=== PATIENT | male | born 1955 | race Caucasian/White ===

== ENCOUNTER → 2018-04-13 | Outpatient (CLI) | payer SELFPAY ==
[2018-04-13 11:10] LABS: Blood Urea Nitrogen 24 mg/dL (9-20)
== END | disposition home or self-care (01) ==
LOC: LABWHC1 10:34
PROVIDERS: ATTEND Physical Medicine & Rehabilitation
DX: M47.27 Other spondylosis with radiculopathy, lumbosacral region (principal); Z98.890 Other specified postprocedural states
CPT/HCPCS: 36415; 82565; 84520

== ENCOUNTER 2021-10-23 20:17 | Emergency (ER) | payer BC ==
[2021-10-23 20:24] VITALS: TEMP 99.9
[2021-10-23 21:31] LABS: Basophils % (A) 0 %; Eosinophils % (A) 0 %; HCT 46.8 % (39.0-53.0); HGB 16.6 gm/dL (13.0-17.5); Lymphocytes # (A) 0.7 k/uL (1.0-4.8); Lymphocytes % (A) 4 %; MCH 34.2 pg (25.0-35.0); MCHC 35.4 g/dL (31.0-37.0); MCV 96.7 fL (80.0-100.0); Mean Platelet Volume 7.2; Monocytes # (A) 0.7 k/uL (0-1.0); Monocytes % (A) 4 %; Neutrophils # (A) 15.1 k/uL (1.3-7.7); Neutrophils % (A) 90 %; Platelet Count 267 k/uL (150-450); RBC 4.84 m/uL (4.30-5.90); RDW 12.6 % (11.5-15.5); WBC 16.7 k/uL (3.8-10.6)
[2021-10-23 21:44] LABS: ALT 15 U/L (4-49); AST 30 U/L (17-59); African American GFR (CKD) >90 (>60 ml/min/1.73 sqM); Albumin 4.4 g/dL (3.5-5.0); Alkaline Phosphatase 78 U/L (38-126); Anion Gap 12 mmol/L; Blood Urea Nitrogen 26 mg/dL (9-20); Calcium 9.7 mg/dL (8.4-10.2); Carbon Dioxide 23 mmol/L (22-30); Chloride 99 mmol/L (98-107); Glucose 111 mg/dL (74-99); Non-African American GFR(CKD) >90 (>60 ml/min/1.73 sqM); Potassium 4.3 mmol/L (3.5-5.1); Sodium 134 mmol/L (137-145); Total Protein 7.5 g/dL (6.3-8.2)
[2021-10-23 21:55] LABS: Appearance,Urine Clear (Clear); Bilirubin,Urine Negative (Negative); Blood,Urine Negative (Negative); Color,Urine Yellow; Glucose,Urine (UA) Negative (Negative); Ketones,Urine 1+ (Negative); Leukocyte Esterase,Urine Negative (Negative); Nitrite,Urine Negative (Negative); Protein,Urine Trace (Negative); Specific Gravity,Urine 1.025 (1.001-1.035); Urobilinogen,Urine <2.0 mg/dL (<2.0)
--- NOTE | 2021-10-23 21:56 | XR ---
EXAMINATION TYPE: XR KUB 2 views DATE OF EXAM: 10/23/2021 9:23 PM CLINICAL HISTORY: Lower abdominal pain and inability to urinate today TECHNIQUE: 2 upright views COMPARISON: None. FINDINGS: Scattered gas is seen in non-distended small bowel loops. Gas and fecal material is seen in distended but not dilated colon. The volume of fecal material is quite prominent in the ascending co aldair and in the rectosigmoid, with evidence of rectal impaction. There is no visceromegaly, pneumoperitoneum, or abnormal calcification appreciated. The lung bases are clear. The osseous structures are intact. IMPRESSION: Prominent volume of stool in the ascending colon and in the rectosigmoid, with evidence suggesting re ctal impaction.
--- NOTE | 2021-10-23 23:50 | ED ---
General Adult HPI - General Chief complaint: Urogenital Stated complaint: Abd pain,unable to urinate Time Seen by Provider: 10/23/21 20:31 Source: patient, RN notes reviewed Mode of arrival: ambulatory Limitations: no limitations - History of Present Illness Initial comments: 66 year old male presents to the Emergency Department for evaluation of inabil ity to urinate. States he has only been able to pass a small amount of urine this evening and he experienced burning discomfort at that time. Also reports diarrhea this morning. Reports normal, soft formed bowel movement yesterday. Complains of lower abdominal discomfort and full sensation. Denies fever, chills, headache, chest pain, shortness of breath, difficulty breathing, nausea, or vomiting. No history of urinary retention for enlarged prostate. - Related Data Home Medications Medication Instructions Recorded Confirmed Ibuprofen [Motrin] 800 mg PO Q8H PRN 10/23/21 10/23/21 lisinopriL 30 mg PO DAILY 10/23/21 10/23/21 Previous Rx's Medication Instructions Recorded Hydrocortisone [Anusol-Hc] 1 applic RECTAL BID #30 gm 10/24/21 Allergies Allergy/AdvReac Type Severity Reaction Status Date / Time amoxicillin Allergy Unknown Verified 10/23/21 22:20 Review of Systems ROS Statement: Those systems with pertinent positive or pertinent negative responses have been documented in the HPI. ROS Other: All systems not noted in ROS Statement are negative. Past Medical History Past Medical History: Hypertension History of Any Multi-Drug Resistant Organisms: None Reported Past Surgical History: Back Surgery Past Psychological History: No Psychological Hx Reported Smoking Status: Never smoker Past Alcohol Use History: Rare Past Drug Use History: None Reported General Exam Limitations: no limitations (Well-developed, well-nourished male with moderate discomfort.) General appearance: alert, other (well developed, well nourished male in moderate discomfort. Initial temperature 99.9, Pulse 115, respiration 20, Blood pressure 177/76, pulse ox 98% on room air.) ENT exam: Present: normal exam, normal oropharynx, mucous membranes moist Respiratory exam: Present: normal lung sounds bilaterally. Absent: respiratory distress, wheezes, rales, rhonchi, stridor Cardiovascular Exam: Present: regular rate, normal rhythm, normal heart sounds. Absent: systolic murmur, diastolic murmur, rubs, gallop, clicks GI/Abdominal exam: Present: soft, tenderness (Moderate suprapubic and lower abdominal tenderness upon palpation; area is slightly firm to touch), normal bowel sounds. Absent: distended, guarding, rebound, rigid Rectal exam: Present: normal rectal tone, fecal impaction (Soft brown stool noted in rectum), hemorrhoids (External hemorrhoids are nonedematous) Back exam: Present: normal inspection. Absent: CVA tenderness (R), CVA tenderness (L) Neurological exam: Present: alert, oriented X3, CN II-XII intact Psychiatric exam: Present: anxious Skin exam: Present: warm, dry, intact, normal color. Absent: rash Course Vital Signs 10/23/21 10/23/21 10/24/21 20:20 22:24 01:19 Temperature 99.9 F H Pulse Rate 115 H 90 87 Respiratory 20 16 18 Rate Blood Pressure 177/76 143/83 156/100 O2 Sat by Pulse 98 95 100 Oximetry - Reevaluation(s) Reevaluation #1: 10/24/21 00:53 Patient able to tolerate brief manual disimpaction. Stool in rectum is soft therefore enema will be ordered. Patient is agreeable with this plan. Discussed predisposing factors for fecal impaction. Aside from hemorrhoids, patient does not have any significant risk factors. 10/24/21 01:42 Patient had substantial stool output after; reports feeling significantly improved. Leg bag will be applied to Granda catheter for patient to be discharged home to follow up with urology. Medical Decision Making - Medical Decision Making 66-year-old male presents to the emergency department for evaluation of urinary retention and diarrhea. Upon exam, patient appears moderately uncomfortable and is experiencing suprapubic tenderness upon palpation. The area is slightly firm. Patient reports he has had minimal urine output. Also reports diarrhea earlier today. Patient was able to pass a small amount of urine. Post void residual 535 amount of urine therefore a Granda catheter was placed with 600 ml urine output almost immediately. X-ray was obtained showing concern for fecal impaction. Digital rectal exam does reveal significant amount of soft brown stool in the rectum. Patient was given an enema with substantial results. Granda catheter was left in place then transition to a leg pain. He was instructed to follow up with urology for recheck. Urine does not appear infectious therefore antibiotic was not initiated. He does have mild leukocytosis, though is not tachycardic or febrile. Catheter care was reviewed at length with patient and spouse. Also encouraged to take Colace daily. Prescribed Anusol for external hemorrhoids. Return parameters were discussed in detail. Patient verbalizes understanding and agrees with this plan. This patient's care was discussed with my attending Dr. Peraza. - Lab Data Result diagrams: 10/23/21 21:17 10/23/21 21:17 Lab Results 10/23/21 10/23/21 10/23/21 Range/Units 21:17 21:17 21:18 WBC 16.7 H (3.8-10.6) k/uL RBC 4.84 (4.30-5.90) m/uL Hgb 16.6 (13.0-17.5) gm/dL Hct 46.8 (39.0-53.0) % MCV 96.7 (80.0-100.0) fL MCH 34.2 (25.0-35.0) pg MCHC 35.4 (31.0-37.0) g/dL RDW 12.6 (11.5-15.5) % Plt Count 267 (150-450) k/uL MPV 7.2 Neutrophils % 90 % Lymphocytes % 4 % Monocytes % 4 % Eosinophils % 0 % Basophils % 0 % Neutrophils # 15.1 H (1.3-7.7) k/uL Lymphocytes # 0.7 L (1.0-4.8) k/uL Monocytes # 0.7 (0-1.0) k/uL Eosinophils # 0.0 (0-0.7) k/uL Basophils # 0.0 (0-0.2) k/uL Sodium 134 L (137-145) mmol/L Potassium 4.3 (3.5-5.1) mmol/L Chloride 99 (98-107) mmol/L Carbon Dioxide 23 (22-30) mmol/L Anion Gap 12 mmol/L BUN 26 H (9-20) mg/dL Creatinine 0.61 L (0.66-1.25) mg/dL Est GFR (CKD-EPI)AfAm >90 (>60 ml/min/1.73 sqM) Est GFR (CKD-EPI)NonAf >90 (>60 ml/min/1.73 sqM) Glucose 111 H (74-99) mg/dL Calcium 9.7 (8.4-10.2) mg/dL Total Bilirubin 1.0 (0.2-1.3) mg/dL AST 30 (17-59) U/L ALT 15 (4-49) U/L Alkaline Phosphatase 78 (38-126) U/L Total Protein 7.5 (6.3-8.2) g/dL Albumin 4.4 (3.5-5.0) g/dL Urine Color Yellow Urine Appearance Clear (Clear) Urine pH 6.0 (5.0-8.0) Ur Specific Lenore 1.025 (1.001-1.035) Urine Protein Trace H (Negative) Urine Glucose (UA) Negative (Negative) Urine Ketones 1+ H (Negative) Urine Blood Negative (Negative) Urine Nitrite Negative (Negative) Urine Bilirubin Negative (Negative) Urine Urobilinogen <2.0 (<2.0) mg/dL Ur Leukocyte Esterase Negative (Negative) - Radiology Data Radiology results: report reviewed, image reviewed KUB x-ray was obtained. Report was reviewed in its entirety. Impression per Dr. Humphreys is prominent volume of stool in the ascending colon and in the rectosigmoid with evidence suggesting rectal impaction. Disposition Clinical Impression: Fecal impaction, Acute urinary retention Disposition: HOME SELF-CARE Condition: Stable Instructions (If sedation given, give patient instructions): Urinary Retention in Men (ED), Fecal Impaction (ED) Additional Instructions: Empty urinary catheter bag frequently. Gently cleanse urethra with mild soap and water. Do not attempt to remove the catheter yourself. Increase fiber and intake of water to avoid constipation. Take a stool softener daily for the next two weeks. Follow up with urology for further evaluation and treatment of urinary retention. Return to the emergency department with any new, worsening, or concerning symptoms. Prescriptions: Hydrocortisone [Anusol-Hc] 1 applic RECTAL BID #30 gm Is patient prescribed a controlled substance at d/c from ED?: No Referrals: Patrick Goetz MD [Primary Care Provider] - 1-2 days Herson Gonzalez MD [STAFF PHYSICIAN] - 1-2 days Time of Disposition: 01:49
[2021-10-24 01:20] VITALS: BP 156/100; PULSE 87; RESP 18
== END 2021-10-24 03:30 | disposition home or self-care (01) ==
LOC: EC 20:17
DX: K56.41 Fecal impaction (principal); R33.9 Retention of urine, unspecified; I10 Essential (primary) hypertension; Z88.0 Allergy status to penicillin
CPT/HCPCS: 36415; 51798; 74018; 80053; 81003; 85025; 99284